=== PATIENT | male | born 1935 | race African-American/Black ===

== ENCOUNTER 2019-06-24 15:14 | Inpatient (IN) ==
[2019-06-24] MEDS ORDERED: Naloxone 0.4 MG/ML INJ IVP PRN (18:34)
[2019-06-25 03:17] LABS: Basophils % 0.1 %; Hematocrit 36.4 % (37.5-50.1); Hemoglobin 11.5 g/dL (12.9-16.9); Immature Granulocytes % 0.5 % (0-4); Lymphocytes # 1.6 K/mcL (0.6-4.6); Lymphocytes % 11.5 %; Mean Corpuscular HGB Conc 31.6 g/dL (31.6-35.5); Mean Corpuscular Hemoglobin 29.9 pg (28.0-33.3); Mean Corpuscular Volume 94.8 fL (83.0-100.0); Mean Platelet Volume 9.9 fL (9.4-12.4); Monocytes % 7.6 %; Platelet Count 161 K/mcL (140-400); Red Blood Count 3.84 M/mcL (4.19-5.50); Red Cell Distribution Width 14.3 % (11.5-14.5); Segmented Neutrophils % 80.3 %; White Blood Count 13.7 K/mcL (4.3-11.1)
[2019-06-25 03:36] LABS: BUN/Creatinine Ratio 14 (6-26); Blood Urea Nitrogen 17 mg/dL (8-23); Calcium 8.6 mg/dL (8.6-10.3); Carbon Dioxide 24 mEq/L (23-29); Chloride 108 mEq/L (98-107); Glucose 123 mg/dL (70-105); Osmolality,Calculated 289 (280-300); Potassium 3.9 mEq/L (3.5-5.1); Sodium 138 mEq/L (136-145); eGFR For African Americans > 60 (> 60); eGFR For Non-African Americans 56 (> 60)
[2019-06-25 03:48] LABS: Platelet Estimate Normal (Normal)
[2019-06-25] MEDS: *HR* Heparin 5,000 UNIT/ML VIAL SQ SCH ×2 (05:31→16:43)
[2019-06-25] MEDS: OLOPATADINE HCL OP SCH ×2 (08:26→20:07)
[2019-06-25] MEDS: Aspirin Enteric Coated 81 MG Tablet PO SCH (08:36)
[2019-06-25] MEDS: risperiDONE 1 MG TABLET PO SCH ×2 (08:36→20:06)
[2019-06-25] MEDS: PrednisoLONE Acetate 1% Opth 5 ML BOTTLE BOTH EYES SCH ×2 (08:37→20:06)
[2019-06-25] MEDS: Finasteride 5 MG TABLET PO SCH (08:37)
[2019-06-25] MEDS ORDERED: cefTRIAXone 2,000 MG in 0.9 % Sodium Chloride Mini Bag 100 ML IVPB SCH (09:00)
[2019-06-25] MEDS ORDERED: cefTRIAXone 2,000 MG in Water for inj. (sterile) 20 ML IVP SCH (09:00)
[2019-06-25] MEDS ORDERED: Azithromycin 500 MG in 0.9 % Sodium Chloride 250 ML IVPB SCH (09:00)
[2019-06-25] MEDS ORDERED: D5% in 0.45% NACL 1,000 ML IVC SCH (13:00)
[2019-06-25] MEDS: Piperacillin/Tazobactam 3.375 GM in 0.9 % Sodium Chloride Mini Bag 100 ML IVPB SCH ×2 (16:43→23:57)
[2019-06-25] MEDS ORDERED: MAGNESIUM HYDROXIDE PO PRN (17:03)
[2019-06-25] MEDS ORDERED: Ampicillin/Sulbactam 1,500 MG in 0.9 % Sodium Chloride Mini Bag 100 ML IVPB SCH (18:00)
[2019-06-25] MEDS: Acetaminophen 325 MG TABLET PO PRN (20:03)
[2019-06-26] MEDS: *HR* Heparin 5,000 UNIT/ML VIAL SQ SCH ×2 (05:31→17:31)
[2019-06-26 08:08] LABS: Basophils % 0.4 %; Hematocrit 36.9 % (37.5-50.1); Immature Granulocytes % 0.6 % (0-4); Lymphocytes # 1.2 K/mcL (0.6-4.6); Lymphocytes % 14.9 %; Mean Corpuscular HGB Conc 32.5 g/dL (31.6-35.5); Mean Corpuscular Hemoglobin 30.4 pg (28.0-33.3); Mean Corpuscular Volume 93.4 fL (83.0-100.0); Mean Platelet Volume 10.3 fL (9.4-12.4); Monocytes # 0.6 K/mcL (0.0-1.3); Monocytes % 8.2 %; Platelet Count 144 K/mcL (140-400); Red Blood Count 3.95 M/mcL (4.19-5.50); Red Cell Distribution Width 14.1 % (11.5-14.5); Segmented Neutrophils % 75.9 %; White Blood Count 7.8 K/mcL (4.3-11.1)
[2019-06-26 08:14] LABS: Alanine Aminotransferase 18 Units/L (7-52); Albumin/Globulin Ratio 0.9 (1.1-2.2); Alkaline Phosphatase 69 Units/L (34-104); Aspartate Amino Transferase 40 Units/L (13-39); BUN/Creatinine Ratio 11 (6-26); Bilirubin,Total 0.4 mg/dL (0.3-1.0); Blood Urea Nitrogen 13 mg/dL (8-23); Calcium 8.7 mg/dL (8.6-10.3); Carbon Dioxide 25 mEq/L (23-29); Chloride 103 mEq/L (98-107); Globulin 3.5 g/dL (2.4-3.5); Glucose 112 mg/dL (70-105); Magnesium 1.9 mg/dL (1.6-2.6); Osmolality,Calculated 281 (280-300); Phosphorous 2.7 mg/dL (2.7-4.5); Potassium 3.7 mEq/L (3.5-5.1); Sodium 135 mEq/L (136-145); Total Protein 6.5 g/dL (6.4-8.9); eGFR For African Americans > 60 (> 60); eGFR For Non-African Americans 58 (> 60)
[2019-06-26] MEDS: Acetaminophen 325 MG TABLET PO PRN (08:31)
[2019-06-26] MEDS: Aspirin Enteric Coated 81 MG Tablet PO SCH (08:31)
[2019-06-26] MEDS: risperiDONE 1 MG TABLET PO SCH ×2 (08:32→21:20)
[2019-06-26] MEDS: Piperacillin/Tazobactam 3.375 GM in 0.9 % Sodium Chloride Mini Bag 100 ML IVPB SCH ×2 (08:32→15:50)
[2019-06-26] MEDS: Finasteride 5 MG TABLET PO SCH (08:32)
[2019-06-26] MEDS: Carbamide Peroxide 150 DROP/15 ML BOTTLE BOTH EARS PRN (08:34)
[2019-06-26] MEDS: PrednisoLONE Acetate 1% Opth 5 ML BOTTLE BOTH EYES SCH ×2 (08:34→21:20)
[2019-06-26] MEDS: OLOPATADINE HCL OP SCH ×2 (08:34→21:20)
[2019-06-27] MEDS: Piperacillin/Tazobactam 3.375 GM in 0.9 % Sodium Chloride Mini Bag 100 ML IVPB SCH ×4 (00:03→23:43)
[2019-06-27 04:25] LABS: Basophils % 0.4 %; Eosinophils % 0.5 %; Hematocrit 34.3 % (37.5-50.1); Hemoglobin 11.2 g/dL (12.9-16.9); Immature Granulocytes % 0.4 % (0-4); Lymphocytes # 1.2 K/mcL (0.6-4.6); Lymphocytes % 22.5 %; Mean Corpuscular HGB Conc 32.7 g/dL (31.6-35.5); Mean Corpuscular Hemoglobin 30.1 pg (28.0-33.3); Mean Corpuscular Volume 92.2 fL (83.0-100.0); Mean Platelet Volume 10.4 fL (9.4-12.4); Monocytes # 0.6 K/mcL (0.0-1.3); Monocytes % 11.3 %; Neutrophils # 3.6 K/mcL (1.6-8.9); Platelet Count 154 K/mcL (140-400); Red Blood Count 3.72 M/mcL (4.19-5.50); Red Cell Distribution Width 13.9 % (11.5-14.5); Segmented Neutrophils % 64.9 %; White Blood Count 5.5 K/mcL (4.3-11.1)
[2019-06-27 04:48] LABS: BUN/Creatinine Ratio 13 (6-26); Blood Urea Nitrogen 14 mg/dL (8-23); Calcium 7.9 mg/dL (8.6-10.3); Carbon Dioxide 20 mEq/L (23-29); Chloride 104 mEq/L (98-107); Glucose 104 mg/dL (70-105); Magnesium 1.9 mg/dL (1.6-2.6); Osmolality,Calculated 275 (280-300); Phosphorous 2.5 mg/dL (2.7-4.5); Potassium 3.6 mEq/L (3.5-5.1); Sodium 132 mEq/L (136-145); eGFR For African Americans > 60 (> 60); eGFR For Non-African Americans > 60 (> 60)
[2019-06-27 05:02] LABS: Platelet Estimate Normal (Normal)
[2019-06-27] MEDS: *HR* Heparin 5,000 UNIT/ML VIAL SQ SCH ×2 (05:23→17:00)
[2019-06-27] MEDS: Aspirin Enteric Coated 81 MG Tablet PO SCH (08:47)
[2019-06-27] MEDS: risperiDONE 1 MG TABLET PO SCH ×2 (08:47→20:42)
[2019-06-27] MEDS: OLOPATADINE HCL OP SCH ×2 (08:48→20:43)
[2019-06-27] MEDS: Finasteride 5 MG TABLET PO SCH (08:48)
[2019-06-27] MEDS: PrednisoLONE Acetate 1% Opth 5 ML BOTTLE BOTH EYES SCH ×2 (08:50→20:43)
[2019-06-27] MEDS: Carbamide Peroxide 150 DROP/15 ML BOTTLE BOTH EARS PRN (08:50)
[2019-06-28] MEDS: *HR* Heparin 5,000 UNIT/ML VIAL SQ SCH (05:30)
[2019-06-28 06:42] VITALS: BP 164/98
[2019-06-28 07:23] LABS: Basophils % 0.7 %; Eosinophils # 0.1 K/mcL (0.0-0.6); Hemoglobin 11.9 g/dL (12.9-16.9); Immature Granulocytes % 0.3 % (0-4); Lymphocytes # 1.7 K/mcL (0.6-4.6); Lymphocytes % 28.5 %; Mean Corpuscular HGB Conc 32.2 g/dL (31.6-35.5); Mean Corpuscular Hemoglobin 29.4 pg (28.0-33.3); Mean Corpuscular Volume 91.4 fL (83.0-100.0); Mean Platelet Volume 10.4 fL (9.4-12.4); Monocytes # 0.9 K/mcL (0.0-1.3); Monocytes % 14.8 %; Neutrophils # 3.2 K/mcL (1.6-8.9); Platelet Count 176 K/mcL (140-400); Red Blood Count 4.05 M/mcL (4.19-5.50); Red Cell Distribution Width 14.1 % (11.5-14.5); Segmented Neutrophils % 54.7 %; White Blood Count 5.9 K/mcL (4.3-11.1)
[2019-06-28 07:47] LABS: BUN/Creatinine Ratio 11 (6-26); Blood Urea Nitrogen 12 mg/dL (8-23); Calcium 8.6 mg/dL (8.6-10.3); Carbon Dioxide 24 mEq/L (23-29); Chloride 107 mEq/L (98-107); Glucose 101 mg/dL (70-105); Osmolality,Calculated 282 (280-300); Phosphorous 3.3 mg/dL (2.7-4.5); Platelet Estimate Normal (Normal); Potassium 3.9 mEq/L (3.5-5.1); Sodium 136 mEq/L (136-145); eGFR For African Americans > 60 (> 60); eGFR For Non-African Americans > 60 (> 60)
[2019-06-28] MEDS: Piperacillin/Tazobactam 3.375 GM in 0.9 % Sodium Chloride Mini Bag 100 ML IVPB SCH (09:40)
[2019-06-28] MEDS: risperiDONE 1 MG TABLET PO SCH (09:41)
[2019-06-28] MEDS: Aspirin Enteric Coated 81 MG Tablet PO SCH (09:41)
[2019-06-28] MEDS: Finasteride 5 MG TABLET PO SCH (09:41)
[2019-06-28] MEDS: OLOPATADINE HCL OP SCH (09:41)
[2019-06-28] MEDS: PrednisoLONE Acetate 1% Opth 5 ML BOTTLE BOTH EYES SCH (09:42)
== END 2019-06-28 16:31 | disposition home or self-care (01) | DRG 871 ==
LOC: 2NENU → SUATTDRO 06-25 15:23 → 3ANU 06-25 18:55
PROVIDERS: ADMIT Internal Medicine; ATTEND Internal Medicine